=== PATIENT | female | born 1970 | race Caucasian/White ===

== ENCOUNTER 2016-08-25 11:57 | Emergency (ER) | payer OTHER ==
[~2016-08-25] VITALS: Ht 172.7 cm; Wt 59.0 kg
[2016-08-25 12:02] VITALS: BP 112/58; PULSE 120; RESP 16; TEMP 99.8; O2SAT 100
[2016-08-25] MEDS ORDERED: SODIUM CHLOR 0.9% 1000 ML INJ 1,000 ML IV SCH (12:13)
[2016-08-25] MEDS ORDERED: SODIUM CHLORIDE 0.9% FLUSH 5 ML FLUSH IVF PRN (12:15)
[2016-08-25] MEDS ORDERED: ONDANSETRON HCL 4 MG/2 ML VIAL IVP ONE (12:15)
--- NOTE | 2016-08-25 12:31 | PD ---
HPI Chief Complaint: GI Complaint Time Seen by Provider: 12:27 Travel History International Travel<30 days: No Contact w/Intl Traveler<30days: No Traveled to known affect area: No History of Present Illness HPI 46-year-old female with no significant past medical issues, presents to the ER today for nausea, vomiting, diarrhea starting last night. She denies any fevers or chills, significant abdominal pains, or any other symptoms. She does not know any sick contacts. She states that she did eat raw oysters 2 days ago and she is not sure whether that could be related. She has vomited at least 3 times today. In addition, she states that she was going to the bathroom today when she had a near-syncopal episode, cough by her . She did not fully lose consciousness, denies injuries. Modifying Factors: None Associated Signs & Symptoms: Near syncope, nausea, vomiting, diarrhea Risk Factors: None PFSH Past Medical History Cancer: Yes (MELANOMA STAGE III ("UNDER CONTROL")) ?: Not LMP: 08/25/2016 Past Surgical History Surgical History: No Previous Surgery Social History Alcohol Use: Yes (1-2/WEEK) Tobacco Use: No Allergies-Medications (Allergen,Severity, Reaction): Coded Allergies: Prednisone (Verified Allergy, Intermediate, TACHYCARDIA, LOW BP, 08/25/16) Sulfa (Verified Allergy, Intermediate, STOMACH PAIN, 08/25/16) Uncoded Allergies: DURACEF (Allergy, Intermediate, STOMACH PAIN, 08/25/16) VIBRATAB (Allergy, Intermediate, STOMACH PAIN, 08/25/16) Reported Meds & Prescriptions Reported Meds & Active Scripts Active No Active Prescriptions or Reported Medications Review of Systems Except as stated in HPI: all other systems reviewed are Neg Physical Exam Narrative GENERAL: Well-nourished, well-developed middle age white female patient in no acute distress. SKIN: Warm and dry. HEAD: Normocephalic. EYES: No scleral icterus. No injection or drainage. NECK: Supple, trachea midline. CARDIOVASCULAR: Regular rate and rhythm without murmurs, gallops, or rubs. RESPIRATORY: Breath sounds equal bilaterally. No accessory muscle use. GASTROINTESTINAL: Abdomen soft, non-tender, nondistended. MUSCULOSKELETAL: No cyanosis, or edema. BACK: Nontender without obvious deformity. No CVA tenderness. Data Data Last Documented VS Vital Signs Date Time Temp Pulse Resp B/P Pulse Ox O2 Delivery O2 Flow Rate FiO2 08/25/16 12:40 100 Room Air 08/25/16 12:02 99.8 120 16 112/58 Orders Complete Blood Count With Diff (08/25/16 12:13) Comprehensive Metabolic Panel (08/25/16 12:13) Lipase (08/25/16 12:13) Urinalysis - C+S If Indicated (08/25/16 12:13) Iv Access Insert/Monitor (08/25/16 12:13) Ecg Monitoring (08/25/16 12:13) Oximetry (08/25/16 12:13) Ondansetron Inj (Zofran Inj) (08/25/16 12:15) Sodium Chlor 0.9% 1000 Ml Inj (Ns 1000 M (08/25/16 12:13) Sodium Chloride 0.9% Flush (Ns Flush) (08/25/16 12:15) Ed Urine Pregnancytest Poc (08/25/16 12:13) Electrocardiogram (08/25/16 12:27) Influenzae A/B Antigen (08/25/16 12:27) Labs Laboratory Tests Test 08/25/16 12:37 White Blood Count 10.3 TH/MM3 Red Blood Count 4.57 MIL/MM3 Hemoglobin 13.8 GM/DL Hematocrit 39.7 % Mean Corpuscular Volume 86.9 FL Mean Corpuscular Hemoglobin 30.1 PG Mean Corpuscular Hemoglobin 34.7 % Concent Red Cell Distribution Width 12.4 % Platelet Count 251 TH/MM3 Mean Platelet Volume 7.0 FL Neutrophils (%) (Auto) 94.0 % Lymphocytes (%) (Auto) 1.5 % Monocytes (%) (Auto) 1.5 % Eosinophils (%) (Auto) 0.1 % Basophils (%) (Auto) 2.9 % Neutrophils # (Auto) 9.6 TH/MM3 Lymphocytes # (Auto) 0.2 TH/MM3 Monocytes # (Auto) 0.2 TH/MM3 Eosinophils # (Auto) 0.0 TH/MM3 Basophils # (Auto) 0.3 TH/MM3 CBC Comment DIFF FINAL Differential Comment Urine Collection Type CLEAN CATCH Urine Color YELLOW Urine Turbidity CLEAR Urine pH 5.5 Urine Specific Malcolm 1.025 Urine Protein TRACE mg/dL Urine Glucose (UA) NEG mg/dL Urine Ketones 15 mg/dL Urine Occult Blood LARGE Urine Nitrite NEG Urine Bilirubin NEG Urine Leukocyte Esterase NEG Urine RBC 4-9 /hpf Urine WBC 0-2 /hpf Urine Squamous Epithelial 6-8 /hpf Cells Urine Bacteria FEW /hpf Microscopic Urinalysis Comment CULT NOT INDICATED Urine Collection Time 12:37 Sodium Level 142 MEQ/L Potassium Level 3.7 MEQ/L Chloride Level 105 MEQ/L Carbon Dioxide Level 27.0 MEQ/L Anion Gap 10 MEQ/L Blood Urea Nitrogen 19 MG/DL Creatinine 0.85 MG/DL Estimat Glomerular Filtration 71 ML/MIN Rate Random Glucose 119 MG/DL Calcium Level 9.0 MG/DL Total Bilirubin 0.9 MG/DL Aspartate Amino Transf 10 U/L (AST/SGOT) Alanine Aminotransferase 14 U/L (ALT/SGPT) Alkaline Phosphatase 46 U/L Total Protein 7.8 GM/DL Albumin 4.1 GM/DL Lipase 84 U/L [facility] Medical Decision Making Medical Screen Exam Complete: Yes Emergency Medical Condition: Yes Medical Record Reviewed: Yes Interpretation(s) EKG shows sinus tachycardia at a rate of 100 bpm with no signs of acute ST-T changes. Laboratory Tests Test 08/25/16 12:37 Neutrophils (%) (Auto) 94.0 % (16.0-70.0) Lymphocytes (%) (Auto) 1.5 % (9.0-44.0) Basophils (%) (Auto) 2.9 % (0.0-2.0) Neutrophils # (Auto) 9.6 TH/MM3 (1.8-7.7) Lymphocytes # (Auto) 0.2 TH/MM3 (1.0-4.8) Basophils # (Auto) 0.3 TH/MM3 (0-0.2) Urine Ketones 15 mg/dL (NEG) Urine Occult Blood LARGE (NEG) Urine RBC 4-9 /hpf (0-3) Urine Squamous Epithelial 6-8 /hpf (0-5) Cells Urine Bacteria FEW /hpf (NONE) Blood Urea Nitrogen 19 MG/DL (7-18) Estimat Glomerular Filtration 71 ML/MIN (>89) Rate Random Glucose 119 MG/DL (74-106) Aspartate Amino Transf 10 U/L (15-37) (AST/SGOT) Differential Diagnosis Nausea, vomiting, diarrhea, near syncopedehydration versus metabolic issues versus acute intra-abdominal processes versus dysrhythmias Narrative Course She is tachycardic in the ER. I suspect underlying dehydration and IV fluids and anti-medics were initiated in the ER. EKG shows sinus tachycardia but no other significant dysrhythmias. No signs of prolongation of QTC or delta waves. Lab work did not indicate significant electrolyte abnormalities. Abdomen is benign and I do not suspect an acute intra-abdominal process. She was reevaluated at 1 PM after IV fluids and anti-medics and is feeling improved. At this point, my plan would be to release her with further symptomatic relief or nausea and vomiting, with suggestion to drink plenty of fluids. Return for any worsening in symptoms as necessary. The plan has been discussed with her and she states understanding. Diagnosis Primary Impression: INFECTIOUS GASTROENTERITIS AND COLITIS, UNSPECIFIED Med/Other Pt SpecificInfo: Prescription(s) given Scripts Ondansetron Odt (Zofran Odt)4 Mg Tab4 Mg SL Q6HR PRN (Nausea/Vomiting) #7 TAB Ref 0 Prov:Zachery Hurst MD 08/25/16 Disposition: 01 DISCHARGE HOME Condition: Stable Zachery Hurst MD Aug 25, 2016 12:31
[2016-08-25 12:40] VITALS: O2SAT 100
[2016-08-25 12:44] LABS: BLOOD, URINE LARGE (NEG); GLUCOSE,URINE NEG (NEG); KETONE, URINE 15 mg/dL (NEG); NITRITE,URINE NEG (NEG); PH, URINE 5.5 (5.0-8.5)
[2016-08-25 12:47] LABS: METHOD OF COLLECTION CLEAN CATCH; URINE COLOR YELLOW (YELLW/STRAW)
[2016-08-25 12:48] LABS: WBC, URINE 0-2 /hpf (0-5)
[2016-08-25 12:49] LABS: BACTERIA, URINE FEW /hpf; COMMENT (UR) CULT NOT INDICATED; CULTURE IF INDICATED CULT NOT INDICATED
[2016-08-25 12:50] LABS: AUTOMATED NEUTROPHIL # 9.6 TH/MM3 (1.8-7.7); BASOPHIL # 0.3 TH/MM3 (0-0.2); BASOPHIL % 2.9 % (0.0-2.0); EOSINOPHIL % 0.1 % (0.0-4.0); HEMATOCRIT 39.7 % (35.0-46.0); HEMO FLAGS DIFF FINAL; LYMPH % 1.5 % (9.0-44.0); LYMPHOCYTE # 0.2 TH/MM3 (1.0-4.8); MEAN CELL VOLUME 86.9 FL (80.0-100.0); MEAN CORPUSCULAR HEMOGLOBIN 30.1 PG (27.0-34.0); MEAN CORPUSCULAR HGB CONC 34.7 % (32.0-36.0); MONO % 1.5 % (0.0-8.0); PLATELET COUNT 251 TH/MM3 (150-450); RED BLOOD COUNT 4.57 MIL/MM3 (4.00-5.30); RED CELL DISTRIBUTION WIDTH 12.4 % (11.6-17.2); WHITE BLOOD COUNT 10.3 TH/MM3 (4.0-11.0)
[2016-08-25 12:51] LABS: CHLORIDE 105 MEQ/L (98-107); POTASSIUM 3.7 MEQ/L (3.5-5.1); SODIUM (NA) 142 MEQ/L (136-145)
[2016-08-25 12:55] LABS: ANION GAP 10 MEQ/L (5-15); BLOOD UREA NITROGEN 19 MG/DL (7-18)
[2016-08-25 12:58] LABS: ALT (GPT) 14 U/L (10-53); AST (GOT) 10 U/L (15-37); GLOMERULAR FILTRATION RATE 71 ML/MIN (>89)
[2016-08-25 12:59] LABS: TOTAL BILIRUBIN ADULT 0.9 MG/DL (0.2-1.0)
[2016-08-25 13:01] LABS: ALKALINE PHOSPHATASE 46 U/L (45-117)
[2016-08-25] MEDS ORDERED: ZOFR4TAB3 SL (13:10)
[2016-08-25 13:17] VITALS: BP 119/64
--- NOTE | 2016-08-26 12:53 | EKG ---
Date Performed: 08/25/2016 Time Performed: 12:51:44 PTAGE: 46 years EKG: Sinus tachycardia Normal ECG except for rate NO PREVIOUS TRACING DOCTOR: Fausto Craven Interpretating Date/Time 08/26/2016 12:49:47
== END 2016-08-25 13:30 | disposition home or self-care (01) ==
LOC: PHED 11:57
DX: A09 Infectious gastroenteritis and colitis, unspecified (principal); R55 Syncope and collapse; R00.0 Tachycardia, unspecified; Z85.828 Personal history of other malignant neoplasm of skin
CPT/HCPCS: 80053; 81001; 83690; 84703; 85025; 87804; 93005; 96374; 99284; J2405; J7030